=== PATIENT | female | born 1940 | race Caucasian/White ===

== ENCOUNTER 2018-04-06 16:46 | Inpatient (IN) | payer OTHER ==
[~2018-04-06] VITALS: Ht 157.5 cm; Wt 52.1 kg
[2018-04-06] MEDS ORDERED: SODIUM CHLORIDE 0.9% 500 ML IV ONE (17:45)
[2018-04-06 18:22] LABS: Basophils # (auto) 0.1 uL; Basophils % (auto) 0.6 % (0.0-2.0); Eosinophils # (auto) 0.1 uL; Eosinophils % (auto) 0.5 % (0.0-7.0); Hematocrit 38.9 % (36.0-46.0); Hemoglobin 13.2 g/dL (12.2-16.2); Lymphocytes # (auto) 1.7 uL; Lymphocytes % (auto) 17.3 % (10.0-50.0); Mean Corpuscular Hemoglobin 31.5 pg (28.0-32.0); Mean Corpuscular Hgb Conc. 33.8 g/dL (32.0-36.0); Mean Corpuscular Volume 93.2 fL (80.0-100.0); Monocytes # (auto) 0.7 uL; Monocytes % (auto) 7.1 % (0.0-12.0); Neutrophils # (auto) 7.3 uL; Neutrophils % (auto) 74.5 % (37.0-80.0); Nucleated Red Blood Cells % 0.1 %; Platelet Count (auto) 260 10^3/uL (140-450); Red Blood Cells 4.17 10^6/uL (4.0-5.20); Red Cell Distribution Width 14.5 % (11.8-14.3); White Blood Cell 9.9 10^3/uL (4.4-10.8)
[2018-04-06 18:31] LABS: INR 0.97 (0.9-1.15); Partial Thromboplastin Time 26.9 sec (23.78-33.04); Prothrombin Time 10.4 sec (9.27-12.13)
[2018-04-06 18:37] LABS: Alanine Aminotransferase 14 U/L (13-56); Albumin 3.8 g/dL (3.4-5.0); Anion Gap 9 (5-15); Aspartate Aminotransferase 12 U/L (15-37); BUN/Creatinine Ratio 27.1; Blood Urea Nitrogen 19 mg/dL (7-18); Calcium 8.5 mg/dL (8.5-10.1); Carbon Dioxide 22 mmol/L (21-32); Chloride 108 mmol/L (98-107); GFR African American 104 mL/min; GFR Non-African American 86 mL/min; Glucose 104 mg/dL (74-106); Potassium 3.5 mmol/L (3.5-5.1); Sodium 139 mmol/L (136-145)
[2018-04-06 18:41] LABS: Alkaline Phosphatase 37 U/L (45-117); Bilirubin, Total 0.4 mg/dL (0.2-1.0); Total Protein 7.4 g/dL (6.4-8.2)
[2018-04-06] MEDS ORDERED: IOHEXOL 300 MG/ML 100ML BOTTLE IJ ONE (18:43)
[2018-04-06 19:18] LABS: Urine Bacteria MANY /hpf (None Seen); Urine Blood Negative /uL (Negative); Urine Mucus FEW (None Seen); Urine Specific Gravity 1.018 (1.001-1.035); Urine WBC 8 /hpf (0 - 5)
[2018-04-06] MEDS ORDERED: cefTRIAXone 1GM/10ml IVPUSH 10 ML IV ONE (21:30)
[2018-04-06] MEDS ORDERED: ACETAMINOPHEN 500 MG TAB PO PRN (22:45)
[2018-04-07 00:27] VITALS: BP 149/62
[2018-04-07] MEDS: metroNIDAZOLE 500MG/100ML 100 ML IV SCH ×5 (01:24→23:34)
[2018-04-07] MEDS: MORPHINE SULFATE 8mg/ml INJ SDV IV PRN ×3 (01:25→20:38)
[2018-04-07] MEDS ORDERED: OLOP0.2S5 OP (02:47)
[2018-04-07] MEDS ORDERED: CHOL20007 PO (02:47)
[2018-04-07] MEDS ORDERED: AMLO5TAB2 PO (02:47)
[2018-04-07] MEDS ORDERED: BACL10TA PO (02:47)
[2018-04-07] MEDS ORDERED: FENO54TA4 PO (02:47)
[2018-04-07] MEDS ORDERED: ZOLP5TAB5 PO (02:47)
[2018-04-07] MEDS ORDERED: MELA3TAB27 PO (02:47)
[2018-04-07] MEDS ORDERED: OMEP20TA PO (02:47)
[2018-04-07] MEDS ORDERED: DORZ2SOL22 EACHEYE (02:47)
[2018-04-07] MEDS ORDERED: LACT10SO66 PO (02:47)
[2018-04-07] MEDS ORDERED: AZEL0.054 EACHEYE (02:47)
[2018-04-07] MEDS ORDERED: ENAL5TAB85 PO (02:47)
[2018-04-07] MEDS ORDERED: TRAM50TA2 PO (02:47)
[2018-04-07] MEDS ORDERED: LOPE2CAP PO (02:47)
[2018-04-07] MEDS ORDERED: POLYSOL5 EACHEYE (02:47)
[2018-04-07] MEDS ORDERED: IBUP600T27 PO (02:47)
[2018-04-07] MEDS ORDERED: FAMO-12 PO (02:47)
[2018-04-07] MEDS ORDERED: CLON2TAB3 PO (02:47)
[2018-04-07] MEDS ORDERED: ALEN70TA55 PO (02:47)
[2018-04-07] MEDS ORDERED: FOLI1TAB6 PO (02:47)
[2018-04-07] MEDS ORDERED: ACET-1156 PO (02:47)
[2018-04-07] MEDS ORDERED: TEMA15CA91 PO (02:47)
[2018-04-07] MEDS ORDERED: CARB0.5D36 EACHEYE (02:47)
[2018-04-07] MEDS ORDERED: SODI1ENE4 PR (02:47)
[2018-04-07] MEDS ORDERED: MEGE40TA15 PO (02:47)
[2018-04-07] MEDS ORDERED: DOCU100T15 PO (02:47)
[2018-04-07] MEDS ORDERED: MAGN400S25 PO (02:47)
[2018-04-07] MEDS ORDERED: PROM2SUP PR (02:47)
[2018-04-07 04:49] VITALS: BP 114/51
[2018-04-07 06:23] LABS: Basophils # (auto) 0.1 uL; Basophils % (auto) 0.8 % (0.0-2.0); Eosinophils # (auto) 0.1 uL; Eosinophils % (auto) 0.8 % (0.0-7.0); Hematocrit 36.1 % (36.0-46.0); Hemoglobin 12.3 g/dL (12.2-16.2); Lymphocytes # (auto) 2.1 uL; Lymphocytes % (auto) 21.7 % (10.0-50.0); Mean Corpuscular Hemoglobin 31.7 pg (28.0-32.0); Mean Corpuscular Hgb Conc. 34.1 g/dL (32.0-36.0); Monocytes # (auto) 0.8 uL; Monocytes % (auto) 8.9 % (0.0-12.0); Neutrophils # (auto) 6.4 uL; Neutrophils % (auto) 67.8 % (37.0-80.0); Platelet Count (auto) 230 10^3/uL (140-450); Red Blood Cells 3.88 10^6/uL (4.0-5.20); Red Cell Distribution Width 14.6 % (11.8-14.3); White Blood Cell 9.5 10^3/uL (4.4-10.8)
[2018-04-07 06:34] LABS: Potassium 3.2 mmol/L (3.5-5.1)
[2018-04-07 06:42] LABS: BUN/Creatinine Ratio 35.1; Calcium 8.5 mg/dL (8.5-10.1)
[2018-04-07] MEDS ORDERED: LACTULOSE 20Gm/30ML SOLN PO PRN (06:45)
[2018-04-07] MEDS: ONDANSETRON HCL 4 MG/2 ML VIAL IV PRN (06:49)
[2018-04-07 09:00] VITALS: BP 140/64
[2018-04-07] MEDS: HYDROcodone-ACET 5/325MG TAB PO PRN ×2 (12:00→17:47)
[2018-04-07] MEDS ORDERED: POTASSIUM CHL 10% (20 MEQ/15ML) 15ml ORAL SOLN PO ONE (12:45)
[2018-04-07 13:00] VITALS: BP 144/73
[2018-04-07] MEDS ORDERED: TEMAZEPAM 15 MG CAP PO PRN (15:45)
[2018-04-07 17:00] VITALS: BP 140/72
[2018-04-07 22:00] VITALS: BP 152/70
[2018-04-07] MEDS: cefTRIAXone 1GM/10ml IVPUSH 10 ML IV SCH (22:04)
[2018-04-08] MEDS: HYDROcodone-ACET 5/325MG TAB PO PRN (03:04)
[2018-04-08 05:17] VITALS: BP 141/61
[2018-04-08 05:19] VITALS: BP 135/55
[2018-04-08] MEDS: metroNIDAZOLE 500MG/100ML 100 ML IV SCH ×3 (05:47→17:30)
[2018-04-08 09:00] VITALS: BP 155/71
[2018-04-08] MEDS ORDERED: LEVOFLOXACIN 500MG 100 ML IV ONE (09:30)
[2018-04-08] MEDS ORDERED: SUCRALFATE 1 GM TAB PO SCH (11:30)
[2018-04-08] MEDS: LEVOFLOXACIN 500MG 100 ML IV SCH (11:34)
[2018-04-08] MEDS: SUCRALFATE 1 GM/10 ML ORAL SUSP PO SCH ×3 (12:03→21:41)
[2018-04-08] MEDS: NYSTATIN (MOUTH-THROAT) 500,000 UNITS/5 ML SUSP MT SCH ×3 (12:04→21:41)
[2018-04-08 13:00] VITALS: BP 156/84
[2018-04-08 17:00] VITALS: BP 146/78
[2018-04-08] MEDS: cefTRIAXone 1GM/10ml IVPUSH 10 ML IV SCH (21:41)
[2018-04-08 22:10] VITALS: BP 136/70
[2018-04-09] MEDS: metroNIDAZOLE 500MG/100ML 100 ML IV SCH ×3 (00:11→12:00)
[2018-04-09] MEDS: ONDANSETRON HCL 4 MG/2 ML VIAL IV PRN ×2 (00:18→05:40)
[2018-04-09] MEDS: HYDROcodone-ACET 5/325MG TAB PO PRN ×2 (01:42→07:27)
[2018-04-09] MEDS ORDERED: POLYETHYLENE GLYCOL 17 GM PWDR PO ONE (03:00)
[2018-04-09 05:00] VITALS: BP 153/90
[2018-04-09] MEDS: NYSTATIN (MOUTH-THROAT) 500,000 UNITS/5 ML SUSP MT SCH ×2 (05:44→12:00)
[2018-04-09 06:26] LABS: Basophils # (auto) 0.1 uL; Basophils % (auto) 0.6 % (0.0-2.0); Eosinophils # (auto) 0.1 uL; Eosinophils % (auto) 0.7 % (0.0-7.0); Hematocrit 33.5 % (36.0-46.0); Hemoglobin 11.5 g/dL (12.2-16.2); Lymphocytes # (auto) 1.9 uL; Lymphocytes % (auto) 19.8 % (10.0-50.0); Mean Corpuscular Hemoglobin 31.9 pg (28.0-32.0); Mean Corpuscular Hgb Conc. 34.3 g/dL (32.0-36.0); Monocytes # (auto) 0.9 uL; Monocytes % (auto) 9.8 % (0.0-12.0); Neutrophils # (auto) 6.5 uL; Neutrophils % (auto) 69.1 % (37.0-80.0); Nucleated Red Blood Cells % 0.1 %; Platelet Count (auto) 234 10^3/uL (140-450); Red Blood Cells 3.61 10^6/uL (4.0-5.20); Red Cell Distribution Width 14.2 % (11.8-14.3); White Blood Cell 9.4 10^3/uL (4.4-10.8)
[2018-04-09] MEDS: SUCRALFATE 1 GM/10 ML ORAL SUSP PO SCH ×2 (06:26→11:30)
[2018-04-09 06:40] LABS: BUN/Creatinine Ratio 24.6; Calcium 8.1 mg/dL (8.5-10.1); Potassium 3.3 mmol/L (3.5-5.1)
[2018-04-09 06:43] LABS: Bilirubin, Total 0.4 mg/dL (0.2-1.0); Total Protein 5.7 g/dL (6.4-8.2)
[2018-04-09 09:00] VITALS: BP 135/70
[2018-04-09] MEDS: LEVOFLOXACIN 500MG 100 ML IV SCH (09:38)
== END 2018-04-09 14:00 | disposition home or self-care (01) | DRG 690 ==
LOC: ER 16:51 → TELE 16:52 → TELE-WESTW 04-07 01:23
PROVIDERS: ADMIT Nurse Practitioner Family; ATTEND Nurse Practitioner Family
DX: N39.0 Urinary tract infection, site not specified (principal); K50.90 Crohn's disease, unspecified, without complications; E11.9 Type 2 diabetes mellitus without complications; B96.20 Unspecified Escherichia coli [E. coli] as the cause of diseases classified elsewhere; B19.20 Unspecified viral hepatitis C without hepatic coma; E87.6 Hypokalemia; K57.30 Diverticulosis of large intestine without perforation or abscess without bleeding; K74.60 Unspecified cirrhosis of liver; G47.00 Insomnia, unspecified; I11.9 Hypertensive heart disease without heart failure; F41.9 Anxiety disorder, unspecified; K59.00 Constipation, unspecified; Z90.710 Acquired absence of both cervix and uterus; Z79.899 Other long term (current) drug therapy; Z88.8 Allergy status to other drugs, medicaments and biological substances; Z82.49 Family history of ischemic heart disease and other diseases of the circulatory system; Z90.49 Acquired absence of other specified parts of digestive tract; Z86.19 Personal history of other infectious and parasitic diseases
CPT/HCPCS: 36415; 71045; 74177; 80048; 80053; 81001; 82150; 83690; 83735; 84484; 85025; 85610; 85730; 87081; 87086; 87088; 87186; 93005; 94761; 96361; 96374; 96375; J1956; J2270; J2405; J3490

== ENCOUNTER 2018-04-09 21:43 | Emergency (ER) | payer OTHER ==
[~2018-04-09] VITALS: Ht 172.7 cm; Wt 61.2 kg
[~2018-04-09 21:43] MED LIST: ACET-1156 PO; ALEN70TA55 PO; AMLO5TAB2 PO; AZEL0.054 EACHEYE; BACL10TA PO; CARB0.5D36 EACHEYE; CHOL20007 PO; CLON2TAB3 PO; DOCU100T15 PO; DORZ2SOL22 EACHEYE; ENAL5TAB85 PO; FAMO-12 PO; FENO54TA4 PO; FOLI1TAB6 PO; IBUP600T27 PO; LACT10SO66 PO; LOPE2CAP PO; MAGN400S25 PO; MEGE40TA15 PO; MELA3TAB27 PO; OLOP0.2S5 OP; OMEP20TA PO; POLYSOL5 EACHEYE; PROM2SUP PR; SODI1ENE4 PR; TEMA15CA91 PO; TRAM50TA2 PO; ZOLP5TAB5 PO
[2018-04-09 22:34] LABS: Basophils # (auto) 0.1 uL; Basophils % (auto) 0.8 % (0.0-2.0); Eosinophils # (auto) 0.1 uL; Eosinophils % (auto) 0.7 % (0.0-7.0); Hematocrit 37.7 % (36.0-46.0); Hemoglobin 12.6 g/dL (12.2-16.2); Lymphocytes # (auto) 1.4 uL; Lymphocytes % (auto) 11.3 % (10.0-50.0); Mean Corpuscular Hemoglobin 31.2 pg (28.0-32.0); Mean Corpuscular Hgb Conc. 33.3 g/dL (32.0-36.0); Mean Corpuscular Volume 93.7 fL (80.0-100.0); Monocytes # (auto) 1.1 uL; Monocytes % (auto) 9.2 % (0.0-12.0); Neutrophils # (auto) 9.5 uL; Platelet Count (auto) 266 10^3/uL (140-450); Red Blood Cells 4.02 10^6/uL (4.0-5.20); Red Cell Distribution Width 14.1 % (11.8-14.3); White Blood Cell 12.2 10^3/uL (4.4-10.8)
[2018-04-09 23:04] LABS: Albumin 3.5 g/dL (3.4-5.0); Calcium 8.8 mg/dL (8.5-10.1); Potassium 3.3 mmol/L (3.5-5.1)
[2018-04-09 23:13] LABS: BUN/Creatinine Ratio 21.4
[2018-04-09 23:20] LABS: Bilirubin, Total 0.3 mg/dL (0.2-1.0)
[2018-04-09 23:26] LABS: Total Protein 6.8 g/dL (6.4-8.2)
[2018-04-10 02:36] VITALS: BP 150/83
== END 2018-04-10 04:22 | disposition home or self-care (01) ==
LOC: ER 21:43 → EDBD 21:43 → ER 04-10 04:22
DX: R53.1 Weakness (principal); M79.89 Other specified soft tissue disorders; I10 Essential (primary) hypertension; R19.7 Diarrhea, unspecified; K56.41 Fecal impaction; R20.0 Anesthesia of skin; K21.9 Gastro-esophageal reflux disease without esophagitis; Z79.899 Other long term (current) drug therapy; Z88.8 Allergy status to other drugs, medicaments and biological substances
CPT/HCPCS: 36415; 80053; 83880; 85025; 85379; 87040

== ENCOUNTER → 2019-04-04 | Outpatient (CLI) | payer MEDICARE ==
[~2019-04-04] MED LIST changes: +ALEN1TAB32 PO; -ALEN70TA55 PO; +AMLO5TAB13 PO; -AMLO5TAB2 PO; -CLON2TAB3 PO; +CLON2TAB6 PO; +DORZ2SOL18 EACHEYE; -DORZ2SOL22 EACHEYE
== END | disposition home or self-care (01) ==
LOC: LAB 10:05
PROVIDERS: ATTEND Psychiatry & Neurology Neurology
DX: M31.6 Other giant cell arteritis (principal)
CPT/HCPCS: 36415; 85652

== ENCOUNTER 2022-04-26 13:20 | Emergency (ER) | payer MEDICARE, MEDICAID ==
[~2022-04-26] VITALS: Ht 157.5 cm; Wt 59.0 kg
[~2022-04-26 13:20] MED LIST changes: -ALEN1TAB32 PO; +ALEN70TA74 PO; +AMLO-489 PO; -AMLO5TAB13 PO; -CARB0.5D36 EACHEYE; +CARB0.5D8 EACHEYE; +CLON-857 PO; -CLON2TAB6 PO; -LACT10SO66 PO; +LACT10SO70 PO; -MEGE40TA15 PO; +MEGE40TA4 PO; +OLOP0.2S14 OP; -OLOP0.2S5 OP; +POLYSOL2 EACHEYE; -POLYSOL5 EACHEYE; +TEMA15CA2 PO; -TEMA15CA91 PO
[2022-04-26 16:56] LABS: Basophils # (auto) 0.2 10 ^3/uL (0-0.2); Basophils % (auto) 1.8 % (0.0-2.0); Eosinophils # (auto) 0.1 10 ^3/uL (0-0.8); Eosinophils % (auto) 1.1 % (0.0-7.0); Hematocrit 28.9 % (36.0-46.0); Hemoglobin 9.7 g/dL (12.2-16.2); Lymphocytes # (auto) 1.8 10 ^3/uL (0.4-5.4); Lymphocytes % (auto) 20.3 % (10.0-50.0); Mean Corpuscular Hemoglobin 29.1 pg (28.0-32.0); Mean Corpuscular Hgb Conc. 33.6 g/dL (32.0-36.0); Mean Corpuscular Volume 86.8 fL (80.0-100.0); Monocytes # (auto) 0.6 10 ^3/uL (0-1.3); Monocytes % (auto) 7.4 % (0.0-12.0); Neutrophils # (auto) 6.1 10 ^3/uL (1.6-8.6); Neutrophils % (auto) 69.4 % (37.0-80.0); Red Blood Cells 3.33 10^6/uL (4.0-5.20); Red Cell Distribution Width 19.8 % (11.8-14.3); White Blood Cell 8.7 10^3/uL (4.4-10.8)
[2022-04-26 17:18] LABS: Albumin 2.7 g/dL (3.4-5.0); Calcium 8.9 mg/dL (8.5-10.1); Potassium 3.1 mmol/L (3.5-5.1)
[2022-04-26 17:22] LABS: BUN/Creatinine Ratio 33.3; Bilirubin, Total 0.5 mg/dL (0.2-1.0); Total Protein 6.9 g/dL (6.4-8.2)
[2022-04-26] MEDS ORDERED: IOHEXOL 300 MG/ML 100ML BOTTLE IJ ONE (17:52)
[2022-04-26 18:04] LABS: INR 1.26 (0.9-1.15)
[2022-04-26] MEDS ORDERED: MORPHINE SULFATE INJ 2 MG/ml SYRG IV ONE (18:30)
[2022-04-26 21:23] LABS: Urine Bacteria NONE SEEN /hpf (None Seen); Urine Blood 3+ /uL (Negative); Urine Mucus FEW (None Seen); Urine WBC 55 /hpf (0 - 5)
[2022-04-26 21:27] LABS: Urine Specific Gravity > 1.050 (1.001-1.035)
[2022-04-26] MEDS ORDERED: DOCUSATE SOD 100 MG CAP PO ONE (21:45)
[2022-04-26] MEDS ORDERED: FLEET ENEMA(ADULT) 135 ML PR ONE (21:45)
[2022-04-26] MEDS ORDERED: CEPH-322 PO (22:58)
[2022-04-26] MEDS ORDERED: DOCU100T15 PO (22:58)
[2022-04-26] MEDS ORDERED: KETOROLAC TROMETH 30 MG/ML 1ML VIAL IV ONE (23:00)
[2022-04-27 09:00] VITALS: BP 116/74
== END 2022-04-27 09:05 ==
LOC: EDBD 13:20 → ER 13:20
DX: N39.0 Urinary tract infection, site not specified (principal); K59.00 Constipation, unspecified; I10 Essential (primary) hypertension; K21.9 Gastro-esophageal reflux disease without esophagitis; Z79.899 Other long term (current) drug therapy; Z88.8 Allergy status to other drugs, medicaments and biological substances
CPT/HCPCS: 36415; 74177; 80053; 81001; 85025; 85610; 96374; 96375; 99285; J1885; J2270; Q9967